=== PATIENT | male | born 1990 | race Caucasian/White ===

== ENCOUNTER 2018-09-25 19:38 | Inpatient (IN) | payer BC, MEDICAID ==
[~2018-09-25] VITALS: Ht 175.3 cm; Wt 79.7 kg
[~2018-09-25 19:38] MED LIST: /ACETCOD2T PO; AMOX500T PO; CELE10TA PO; INVE156I IM; OSEL75CA PO; PROAAER IN; RISP1TAB3 PO; RISP4TAB33 PO; TRAZ50TA2 PO; VENTAER IN; VITA-112 PO; ZYPR10TA PO; ZYPR20TA PO; ZYPR5TAB2 PO
[2018-09-25 20:48] LABS: HEMATOCRIT 49.2 % (42.0-52.0); HEMOGLOBIN 16.8 g/dl (13.5-17.5); MEAN CORPUSCULAR HEMOGLOBIN 29.8 pg (27.0-33.0); MEAN CORPUSCULAR HGB CONC 34.1 g/dl (32.0-36.5); MEAN CORPUSCULAR VOLUME 87.4 fl (80.0-96.0); PLATELET COUNT, AUTOMATED 247 10^3/uL (150-450); RED BLOOD COUNT 5.63 10^6/uL (4.30-6.10); WHITE BLOOD COUNT 12.1 10^3/uL (4.0-10.0)
[2018-09-25 20:57] LABS: AMPHETAMINES LEVEL URINE NEGATIVE (NEGATIVE); BARBITURATES URINE NEGATIVE (NEGATIVE); BENZODIAZEPINES URINE NEGATIVE (NEGATIVE); CANNABINOIDS URINE NEGATIVE (NEGATIVE); COCAINE METABOLITE URINE NEGATIVE (NEGATIVE); METHADONE URINE NEGATIVE (NEGATIVE); OPIATES URINE NEGATIVE (NEGATIVE); PHENCYCLIDINE URINE NEGATIVE (NEGATIVE)
[2018-09-25 21:18] LABS: ACETAMINOPHEN LEVEL < 2.0 UG/ML (10.0-30.0); ALBUMIN 4.4 GM/DL (3.2-5.2); ALT/SGPT 48 U/L (12-78); BILIRUBIN,DIRECT 0.2 MG/DL (0.0-0.2); BILIRUBIN,TOTAL 0.6 MG/DL (0.2-1.0); BLOOD UREA NITROGEN 12 MG/DL (7-18); CARBON DIOXIDE LEVEL 28 MEQ/L (21-32); CHLORIDE LEVEL 101 MEQ/L (98-107); ETHYL ALCOHOL (ETHANOL) < 0.003 % (0.000-0.010); GLOMERULAR FILTRATION RATE > 60.0 (>60); GLUCOSE, FASTING 103 MG/DL (70-100); POTASSIUM SERUM 3.8 MEQ/L (3.5-5.1); SALICYLATE LEVEL < 1.7 MG/DL (5.0-30.0); SODIUM LEVEL 136 MEQ/L (136-145); TOTAL PROTEIN 7.8 GM/DL (6.4-8.2)
[2018-09-25] MEDS ORDERED: ACETAMINOPHEN TAB 650MG DOSE (2X325MG) PO PRN (21:45)
[2018-09-25] MEDS ORDERED: MOM 30ML SUSPENSION UDC PO PRN (21:45)
[2018-09-25] MEDS ORDERED: traZODone 50 MG TAB PO PRN (21:45)
[2018-09-25] MEDS ORDERED: PROAAER10 INH (22:24)
[2018-09-25] MEDS ORDERED: LORA10TA3 PO (22:24)
[2018-09-25] MEDS ORDERED: ARTI99.0 OU (22:24)
[2018-09-25] MEDS ORDERED: METO1TAB32 PO (22:24)
[2018-09-25 23:38] VITALS: BP 145/72
[2018-09-26 06:32] VITALS: BP 116/78
[2018-09-26] MEDS: METOPROLOL SUCC *XL* 25MG TAB (TopROL *XL*) PO SCH ×2 (09:00→11:42)
[2018-09-26] MEDS: PALIPERIDONE 3 MG ER TAB (INVEGA) PO SCH ×2 (09:33→21:24)
--- NOTE | 2018-09-26 09:36 | HPEPDOC ---
[facility] Medical History & Physical History and Physical PCP: Christin VELEZ ATTENDING: Dr. Winnie Barnes HPI: 27 yo M admitted to [facility] for unspecified psychotic disorder, being medically examined today. The patient reports no verbalized medical complaints today. He has a difficult time providing history. The patient is able to provide very little history pedro wang repeatedly states "it's my brain", but is unable to elaborate further. The patient states he takes metoprolol for his blood pressure. Denies any fevers, chills, weakness, fatigue, IZQUIERDO, CP, SOB, cough, palpitations, abdominal pain, N/V/D or changes in bowel or bladder habits. PMHx: History of psychosis Schizophrenia History of SI Asthma Hypertension Allergic rhinitis PSHX: Denies SOCHX: Resides in: [facility] Marital Status: Kids: 1 Employment: Unemployed Tobacco use: Denies ETOH: Denies Illicit Drugs: History of marijuana, states none in the past 6 years. IV Drug Use: Denies Tattoos done unprofessionally: 2 FAMHX: Mother: Alive, well Father: Alive, well Siblings: Alive, well Children: Alive, well Unexpected deaths due to medical reasons: None. ROS: As noted in HPI, otherwise 11pt ROS of systems reviewed and unremarkable. PE: GEN: 27 yo M, appears stated age. Well-nourished, well developed. No acute distress. Alert and oriented x 3. Avoids eye contact, short responses, flat affect. HEENT: Normocephalic, atraumatic. Pupils are equal, round, and reactive to light. Extraocular movements are intact. No nystagmus appreciated. Sclera are no nicteric. Conjunctiva without injection. Nose midline. Nasal turbinates without bogginess. EACs both patent BL. TMs both visualized and anaya with good cone of light, no bulging or erythema. No facial asymmetry. Moist mucous membranes. Dentition fair. Pharynx pink and moist, no cobblestoning. Neck supple, trachea midline. No lymphadenopathy or thyromegaly appreciated. CHEST: Regular rate and rhythm, +S1, +S2 LUNGS: Clear to auscultation bilaterally. No wheezes, rales, or rhonchi. Breathing appears symmetric and easy. Patient is speaking in full sentences. No accessory muscle use. ABD: Round, soft, non-tender, non-distended. +Bowel sounds throughout. No rebound or guarding. No costovertebral angle tenderness. EXT: Pulses 2+ bilaterally dorsalis pedis and radial. No lower extremity edema appreciated. SKIN: Kamaili, dry, warm. Capillary refill <2sec. No rashes. NEURO: Alert and oriented x 3. Cranial nerves III-XII are intact. No focal deficits appreciated. EKG: Pending A&P: 27 yo M admitted to [facility] for unspecified psychotic disorder 1. Psych. Plan per Psychiatry. Obtain baseline EKG to assure the safety of psychiatric medications as they can prolong the QT interval. 2. Nicotine dependence. Patch available. 3. Asthma. Continue albuterol HFA 2 puffs every 4 hours as needed. 4. Follow up with PCP on discharge. 5. Leukocytosis. Patient is afebrile. Asymptomatic. Check UA with reflex culture. Recheck CBC in a.m. 6. Allergic rhinitis. Continue Claritin 10 mg daily. 7. Hypertension. Continue Toprol-XL 25 mg by mouth daily with hold parameters. 8. History of tattoos done unprofessionally. Patient declines HIV and hepatitis screening at this time. 9. Staff member Vasile present throughout exam. Vital Signs Vital Signs Date Time Temp Pulse Resp B/P (MAP) Pulse Ox O2 Delivery O2 Flow Rate FiO2 09/26/18 06:32 98.4 68 16 116/78 (91) 09/25/18 22:29 97 09/25/18 19:38 Room Air Laboratory Data Labs 24H Laboratory Tests 2 09/25/18 20:01: Urine Amphetamines Screen NEGATIVE, Urine Benzodiazepines Screen NEGATIVE, Urine Opiates Screen NEGATIVE, Urine Methadone Screen NEGATIVE, Urine Barbiturates Screen NEGATIVE, Urine Phencyclidine Screen NEGATIVE, Urine Cocaine Metabolite Screen NEGATIVE, Urine Cannabinoids Screen NEGATIVE 09/25/18 20:36: Nucleated Red Blood Cells % (auto) 0.0, Anion Gap 7L, Glomerular Filtration Rate > 60.0, Calcium Level 9.0, Aspartate Amino Transf (AST/SGOT) 13, Alanine Aminotransferase (ALT/SGPT) 48, Alkaline Phosphatase 62, Total Bilirubin 0.6, Direct Bilirubin 0.2, Total Protein 7.8, Albumin 4.4, Albumin/Globulin Ratio 1.29, Thyroid Stimulating Hormone (TSH) 1.230, Salicylates Level < 1.7L, Acetaminophen Level < 2.0L, Ethyl Alcohol Level < 0.003 CBC/BMP Laboratory Tests 09/25/18 20:36 Red Blood Count 5.63, Mean Corpuscular Volume 87.4, Mean Corpuscular Hemoglobin 29.8, Mean Corpuscular Hemoglobin Concent 34.1, Red Cell Distribution Width 12.1 Home Medications Scheduled Loratadine (Loratadine) 10 Mg Tab, 10 MG PO DAILY Metoprolol Succinate (Metoprolol Succinate ER) 25 Mg Tab, 25 MG PO DAILY Scheduled PRN Albuterol Sulfate (Proair Hfa) 108 Mcg/Act Aer, 2 PUFF INH Q4H PRN for SHORTNESS OF BREATH Artificial Tears (Artificial Tears) 1.4 % Ilana, 1 DROP OU QID PRN for DRY EYES Allergies Coded Allergies: No Known Drug Allergy (Verified Allergy, 06/22/13) POLLEN (Verified Allergy, 11/01/12) Paula Schafer Sep 26, 2018 09:36
[2018-09-26] MEDS ORDERED: POLYVINYL ALCOHOL OPHTH SOLN 15 ML(LIQUITEARS) OU PRN (09:45)
[2018-09-26] MEDS: LORATADINE 10 MG TAB PO SCH (10:20)
--- NOTE | 2018-09-26 12:06 | MHHPEPDOC ---
General Date Of Admission: Sep 25, 2018 Legal Status: 9.39 Chief Complaint "I feel like I'm loosing my mind." History of Present Illness HISTORY OF THE PRESENT ILLNESS: Patient is a 27 -year-old , male, with a history of schizophrenia who was admitted after presenting to ED with his stating "I feel like I'm loosing my mind. I just feel like I'm dying inside. I just need to be put down... I was put down here before." Pt's told ED staff, pt has been noncompliance with [facility] follow-up and invega for the past 6 months. stated that pt has become increasingly paranoid for the past few days and told her "people are tracking me." Pt seen today and he is a very poor historian, appears to be paranoid and responding to internal stimuli, pacing thru out interview unwilling to sit down when offered. Pt states he's here b/c "I'm loosing my mind and I need to be put down." Pt unable to proceed with rest of interview reliably due to on going internal stimuli, paranoia, restlessness, and poor attention. Rest of history gather from chart review as pt is a very poor historian. Psychiatric Review of Systems Depression (2 or more weeks): depressed mood, suicidal thoughts Romina (4 or more days of): denies Psychosis: auditory hallucination, delusions, paranoia, disorganization PTSD: denies Anxiety: situational anxiety, stressor related anxiety Anxiety/ 6 months or more of: restlessness, keyed up, difficulty concentrating Past Psychiatric History Previous Psychiatric Diagnosis:Schizophrenia Previous Psychiatric Admissions: last admission [facility] 10/2013 (4x total [facility]), Inpatient psychiatric hospitalization at [facility] from 12/27/11 to 01/04/12. Suicide Attempts: none known Psychiatric Follow-up: noncompliant follow-up [facility] 6 months Psychiatric medications: noncompliant invega 6 months Past Medical History Medical Problems none known Head Injury: No Seizures: No Hospitalizations: Yes Surgeries: No Family Medical/Psychiatric HX Medical Problems noncontributory Psychiatric Disorders: No Addiction: No Suicide Attemps/Completions: No Addiction History nicotine (vapor) Social History Childhood: grew up [facility] Abuse/Trauma:none known Current Living Situation: lives with and son Education: GED per records Employment: unknown Social Support: Legal: none known Marital: , 1 teenage son known from previous records Mental Status Examination General Appearance: well groomed, appears stated age, hospital scubs/clothing Build: average Demeanor: mistrustful, withdrawn, preoccupied, guarded, very figety Eye Contact: poor Activity: anxious Behavior: uncooperative, restless, withdrawn, other (pacing) Speech: clear, non-spontaneous, impoverished Mood: anxious Mood "I'm loosing my mind" Affect: constricted, flat, inappropriate, anxious, disorganized Thought Process: concrete, loose, associative Thought Content (Delusions): somatic, nihilistic, paranoia, delusions, other ((Cotard delusion?)) Thought Content (Other): preoccupied, obsessional, guarded, ideas of reference, internal-stimuli, appears paranoid, unable to elaborate Thought Content (Aggressive): none reported Perception (Hallucinations): auditory Perception (Other): none reported Cognition (Impairment of): attention/concentration, ability to abstract Cognition(Intelligence Est.): average Oriented: Awake, Alert, Oriented times three Insight: poor Judgment: Poor Psychosis: Associations, Abstract Thinking, Psychotic Perceptions Diagnoses Paranoid Schizophrenia R/o Cotard delusions Assessment Pt with a history of schizophrenia and noncompliance 6 months currently in decompensated psychotic state. He is paranoid, responding internal stimuli, and delusional. Will restart invega as was beneficial in the past. Initial Treatment Plan 1. Patient was admitted on a 9.39 status. 2. Complete history was obtained. 3. With patients permission, family will be contacted and database will be expanded. 4. Patients medication regimen will be reviewed and changed accordingly. 5. Patient will be provided with protected environment. 6. Patient will be treated with individual, group, and milieu therapies. 7. Patient will receive supportive psych-education. 8. Discharge planning will commence immediately. 9. Outpatient follow-up treatment will be strongly recommended. 10. The initial treatment plan will focus initially on: * Depression. * Risk for suicide. * Substance abuse. 11. invega 3mg bid ESTIMATED LENGTH OF STAY: 7-9 DAYS. TIME SPENT COUNSELING AND COORDINATING INITIAL CARE: 60 minutes. Vital Signs Vital Signs Date Time Temp Pulse Resp B/P (MAP) Pulse Ox O2 Delivery O2 Flow Rate FiO2 09/26/18 09:00 61 130/77 09/26/18 06:32 98.4 16 09/25/18 22:29 97 09/25/18 19:38 Room Air Laboratory Data 24H Labs Laboratory Tests 2 09/25/18 20:01: Urine Amphetamines Screen NEGATIVE, Urine Benzodiazepines Screen NEGATIVE, Urine Opiates Screen NEGATIVE, Urine Methadone Screen NEGATIVE, Urine Barbiturates Screen NEGATIVE, Urine Phencyclidine Screen NEGATIVE, Urine Cocaine Metabolite Screen NEGATIVE, Urine Cannabinoids Screen NEGATIVE 09/25/18 20:36: Nucleated Red Blood Cells % (auto) 0.0, Anion Gap 7L, Glomerular Filtration Rate > 60.0, Calcium Level 9.0, Aspartate Amino Transf (AST/SGOT) 13, Alanine Aminotransferase (ALT/SGPT) 48, Alkaline Phosphatase 62, Total Bilirubin 0.6, Direct Bilirubin 0.2, Total Protein 7.8, Albumin 4.4, Albumin/Globulin Ratio 1.29, Thyroid Stimulating Hormone (TSH) 1.230, Salicylates Level < 1.7L, Acetaminophen Level < 2.0L, Ethyl Alcohol Level < 0.003 CBC/BMP Laboratory Tests 09/25/18 20:36 Red Blood Count 5.63, Mean Corpuscular Volume 87.4, Mean Corpuscular Hemoglobin 29.8, Mean Corpuscular Hemoglobin Concent 34.1, Red Cell Distribution Width 12.1 Medications Scheduled Loratadine (Loratadine) 10 Mg Tab, 10 MG PO DAILY, (Reported) Metoprolol Succinate (Metoprolol Succinate ER) 25 Mg Tab, 25 MG PO DAILY, (Reported) Scheduled PRN Albuterol Sulfate (Proair Hfa) 108 Mcg/Act Aer, 2 PUFF INH Q4H PRN for SHORTNESS OF BREATH, (Reported) Artificial Tears (Artificial Tears) 1.4 % Ilana, 1 DROP OU QID PRN for DRY EYES, (Reported) Allergies Coded Allergies: No Known Drug Allergy (Verified Allergy, 06/22/13) POLLEN (Verified Allergy, 11/01/12) JENNY ULLOA DO Sep 26, 2018 11:34 am
[2018-09-26] MEDS ORDERED: HALOPERIDOL 5 MG TAB PO PRN (12:15)
[2018-09-26 18:00] VITALS: BP 134/89
[2018-09-27 06:41] VITALS: BP 126/60
[2018-09-27] MEDS: PALIPERIDONE 3 MG ER TAB (INVEGA) PO SCH ×2 (09:38→20:31)
[2018-09-27] MEDS: LORazepam 2 MG TAB PO PRN ×2 (09:38→20:31)
[2018-09-27] MEDS: LORATADINE 10 MG TAB PO SCH (09:39)
[2018-09-27] MEDS: METOPROLOL SUCC *XL* 25MG TAB (TopROL *XL*) PO SCH (09:40)
--- NOTE | 2018-09-27 10:12 | MHIPNPDOC ---
[facility] Progress Note Progress Note DATE OF SERVICE: 09/27/18 HISTORY: Patient is a 27 -year-old , male, with a history of schizophrenia who was admitted after presenting to ED with his stating "I feel like I'm loosing my mind. I just feel like I'm dying inside. I just need to be put down... I was put down here before." Pt's told ED staff, pt has been noncompliance with [facility] follow-up and invega for the past 6 months. stated that pt has become increasingly paranoid for the past few days and told her "people are tracking me." Pt seen today and he is a very poor historian, appears to be paranoid and responding to internal stimuli, pacing thru out interview unwilling to sit down when offered. Pt states he's here b/c "I'm loosing my mind and I need to be put down." Pt unable to proceed with rest of interview reliably due to on going internal stimuli, paranoia, restlessness, and poor attention. Rest of history gather from chart review as pt is a very poor historian. VITAL SIGNS: See below. NEW TEST RESULTS: See below. CURRENT MEDICATIONS: See below. MENTAL STATUS EXAMINATION: General Appearance: well groomed, appears stated age, hospital scubs/clothing Build: average Demeanor: mistrustful, withdrawn, preoccupied, guarded, very figety Eye Contact: poor Activity: anxious Behavior: uncooperative, restless, withdrawn, other (pacing) Speech: clear, non-spontaneous, impoverished Mood: anxious Mood "I need a life" Affect: constricted, flat, inappropriate, anxious, disorganized Thought Process: concrete, loose, associative Thought Content (Delusions): somatic, nihilistic, paranoia, delusions, other ((Cotard delusion?)) Thought Content (Other): preoccupied, obsessional, guarded, ideas of reference, internal-stimuli, appears paranoid, unable to elaborate Thought Content (Aggressive): none reported Perception (Hallucinations): auditory Perception (Other): none reported Cognition (Impairment of): attention/concentration, ability to abstract Cognition(Intelligence Est.): average Oriented: Awake, Alert, Oriented times three Insight: poor Judgment: Poor Psychosis: Associations, Abstract Thinking, Psychotic Perceptions DIAGNOSES: Paranoid Schizophrenia R/o Cotard delusions ASSESSMENT:Pt seen and remains bizarre, mistrustful, and paranoid. Appears to be responding to internal stimuli with limited ability to participate in interview only stating "I need a life." Pt continues to pace halls. Isolative to self. Appears psychotic. Complaint with invega and will monitor for tolerance and improvement in status as titrate up to invega sustenna administration. MANAGEMENT PLAN: continue current plan. Plan for invega sustenna pending oral invega tolerance and improved status. Medications: invega 3mg bid TIME SPENT: 30 minutes. Vital Signs Vital Signs Date Time Temp Pulse Resp B/P (MAP) Pulse Ox O2 Delivery O2 Flow Rate FiO2 09/27/18 09:40 64 128/72 09/27/18 06:41 97.8 16 09/25/18 22:29 97 09/25/18 19:38 Room Air Laboratory Data 24H Labs Laboratory Tests 2 09/26/18 14:45: Urine Color STRAW, Urine Appearance CLEAR, Urine pH 7.0, Urine Specific Baker 1.002, Urine Protein NEGATIVE, Urine Glucose (UA) NEGATIVE, Urine Ketones NEGATI VE, Urine Blood NEGATIVE, Urine Nitrite NEGATIVE, Urine Bilirubin NEGATIVE, Urine Urobilinogen 0.2, Urine Leukocyte Esterase NEGATIVE, Urine WBC (Auto) 0, Urine RBC (Auto) 1, Urine Hyaline Casts (Auto) 0, Urine Bacteria (Auto) NEGATIVE, Urine Squamous Epithelial Cells 0, Urine Sperm (Auto) Current Medications Current Medications Acetaminophen (Tylenol Tab) 650 mg Q6HP PRN PO HEADACHE or DISCOMFORT; Start 09/25/18 at 21:45 Al Hydrox/Mg Hydrox/Simethicone (Mylanta) 30 ml Q4HP PRN PO HEARTBURN/INDIGESTION; Start 09/25/18 at 21:45 Albuterol Sulfate (Proventil, Ventolin Hfa) 2 puff Q4H PRN INH SHORTNESS OF BREATH; Start 09/26/18 at 09:45 Artificial Tears (Akwa Tears) 1 drop QID PRN OU DRY EYES; Start 09/26/18 at 09:45 Haloperidol (Haldol) 5 mg Q6HP PRN PO AGITATION; Start 09/26/18 at 12:15 Home Med (Med Rec Complete!) ASDIRECTED XX ; Start 09/25/18 at 22:30; Stop 09/25/18 at 22:30; Status DC Loratadine (Claritin) 10 mg DAILY PO Last administered on 09/27/18at 09:39; Star t 09/26/18 at 09:00 Lorazepam (Ativan) 2 mg Q6HP PRN PO ANXIETY/AGITATION Last administered on 09/27/18 09:38; Start 09/26/18 at 12:15 Magnesium Hydroxide (Milk Of Magnesia) 30 ml DAILYPRN PRN PO CONSTIPATION; Start 09/25/18 at 21:45 Metoprolol Succinate (TopROL XL) 25 mg DAILY PO Last administered on 09/27/18 09:40; Start 09/26/18 at 09:00 Paliperidone (Invega) 3 mg BID PO Last administered on 09/27/18 09:38; Start 09/26/18 at 09:00 Trazodone HCl (Desyrel) 50 mg QHSP PRN PO INSOMNIA; Start 09/25/18 at 21:45 Allergies Coded Allergies: No Known Drug Allergy (Verified Allergy, 06/22/13) POLLEN (Verified Allergy, 11/01/12) JENNY ULLOA DO Sep 27, 2018 10:12 am
[2018-09-27] MEDS: NICOTINE 21MG/24HR 1 EA TRANSDERMAL TD SCH (12:06)
[2018-09-27] MEDS: MAALOX 30 ML SUSP *UDC PO PRN (16:55)
[2018-09-27 18:00] VITALS: BP 122/68
[2018-09-27] MEDS: traZODone 50 MG TAB PO SCH (21:00)
--- NOTE | 2018-09-27 22:22 | ECGEPIP ---
Stationary ECG Study [facility] Test Date: 2018-09-26 Pat Name: ESTRELLITA SIERRA Department: Room: [place] [address] Gender: M Contact Printer Dry Film: SAMIA : 1990 Requested By: Paula Schafer Order Number: [id number] Reading MD: Ck Chisholm Measurements Intervals Chana Rate: 72 P: 53 LA: 131 QRS: 70 QRSD: 80 T: 52 QT: 369 QTc: 404 Interpretive Statements SINUS RHYTHM Within normal limits. Baseline wander. No significant change compared with 10/24/2013. Electronically Signed On 09-27-2018 22:22:30 EST by Ck Chisholm
[2018-09-28 07:23] VITALS: BP 108/57
[2018-09-28] MEDS: LORATADINE 10 MG TAB PO SCH (09:00)
[2018-09-28] MEDS: PALIPERIDONE 3 MG ER TAB (INVEGA) PO SCH (09:00)
[2018-09-28] MEDS: METOPROLOL SUCC *XL* 25MG TAB (TopROL *XL*) PO SCH (09:01)
[2018-09-28] MEDS: NICOTINE 21MG/24HR 1 EA TRANSDERMAL TD SCH (09:02)
[2018-09-28] MEDS: LORazepam 2 MG TAB PO PRN ×2 (09:55→20:37)
--- NOTE | 2018-09-28 09:56 | MHIPNPDOC ---
[facility] Progress Note Progress Note DATE OF SERVICE: 09/28/18 HISTORY: Patient is a 27 -year-old , male, with a history of schizophrenia who was admitted after presenting to ED with his stating "I feel like I'm loosing my mind. I just feel like I'm dying inside. I just need to be put down... I was put down here before." Pt's told ED staff, pt has been noncompliance with [facility] follow-up and invega for the past 6 months. stated that pt has become increasingly paranoid for the past few days and told her "people are tracking me." Pt seen today and he is a very poor historian, appears to be paranoid and responding to internal stimuli, pacing thru out interview unwilling to sit down when offered. Pt states he's here b/c "I'm loosing my mind and I need to be put down." Pt unable to proceed with rest of interview reliably due to on going internal stimuli, paranoia, restlessness, and poor attention. Rest of history gather from chart review as pt is a very poor historian. VITAL SIGNS: See below. NEW TEST RESULTS: See below. CURRENT MEDICATIONS: See below. MENTAL STATUS EXAMINATION: General Appearance: well groomed, appears stated age, hospital scrubs/clothing Build: average Demeanor: less mistrustful, withdrawn, preoccupied, guarded Eye Contact: poor Activity: less anxious Behavior: more cooperative, restless, withdrawn, other (pacing) Speech: clear, non-spontaneous, impoverished Mood: less anxious Mood "ok" Affect: constricted, flat, less anxious and disorganized Thought Process: concrete, less loose and associative Thought Content (Delusions): less somatic, nihilistic, paranoia, delusions, other ((Cotard delusion?)) Thought Content (Other): less preoccupied, obsessional, guarded, ideas of reference, internal-stimuli, appears paranoid Thought Content (Aggressive): none reported Perception (Hallucinations): less auditory Perception (Other): none reported Cognition (Impairment of): attention/concentration, ability to abstract Cognition(Intelligence Est.): average Oriented: Awake, Alert, Oriented times three Insight: poor Judgment: Poor Psychosis: Associations, Abstract Thinking, Psychotic Perceptions DIAGNOSES: Paranoid Schizophrenia R/o Cotard delusions ASSESSMENT:Pt seen and states his head (thoughts) are better. Improving bizarre, mistrustful, and paranoid behavior. Appears to be responding to internal stimuli intermittantly thru out day but improving with treatment. Stat es he's tolerating invega, is beneficial, and agreeable to increase. Less pacing halls and isolative to self. Appears less psychotic. Complaint with invega and will monitor for tolerance and improvement in status as titrate up to invega sustenna administration. MANAGEMENT PLAN: continue current plan. Plan for invega sustenna pending oral invega tolerance and improved status. Medications: invega 6mg bid TIME SPENT: 30 minutes. Vital Signs Vital Signs Date Time Temp Pulse Resp B/P (MAP) Pulse Ox O2 Delivery O2 Flow Rate FiO2 09/28/18 09:01 100 133/89 09/28/18 07:23 97.7 16 09/25/18 22:29 97 09/25/18 19:38 Room Air Current Medications Current Medications Acetaminophen (Tylenol Tab) 650 mg Q6HP PRN PO HEADACHE or DISCOMFORT; Start 09/25/18 at 21:45 Al Hydrox/Mg Hydrox/Simethicone (Mylanta) 30 ml Q4HP PRN PO HEARTBURN/INDIGESTION Last administered on 09/27/18at 16:55; Start 09/25/18 at 21:45 Albuterol Sulfate (Proventil, Ventolin Hfa) 2 puff Q4H PRN INH SHORTNESS OF BREATH; Start 09/26/18 at 09:45 Artificial Tears (Akwa Tears) 1 drop QID PRN OU DRY EYES; Start 09/26/18 at 09:45 Haloperidol (Haldol) 5 mg Q6HP PRN PO AGITATION; Start 09/26/18 at 12:15 Home Med (Med Rec Complete!) ASDIRECTED XX ; Start 09/25/18 at 22:30; Stop 09/25/18 at 22:30; Status DC Loratadine (Claritin) 10 mg DAILY PO Last administered on 09/28/18at 09:00; Start 09/26/18 at 09:00 Lorazepam (Ativan) 2 mg Q6HP PRN PO ANXIETY/AGITATION Last administered on 09/27/18at 20:31; Start 09/26/18 at 12:15 Magnesium Hydroxide (Milk Of Magnesia) 30 ml DAILYPRN PRN PO CONSTIPATION; Start 09/25/18 at 21:45 Metoprolol Succinate (TopROL XL) 25 mg DAILY PO Last administered on 09/28/18at 09:01; Start 09/26/18 at 09:00 Nicotine (Nicoderm Cq 21mg) 1 patch DAILY TD Last administered on 09/28/18at 09:02; Start 09/27/18 at 09:00 Paliperidone (Invega) 3 mg BID PO Last administered on 09/28/18at 09:00; Start 09/26/18 at 09:00 Trazodone HCl (Desyrel) 50 mg QHS PO ; Start 09/27/18 at 21:00 Trazodone HCl (Desyrel) 50 mg QHSP PRN PO INSOMNIA; Start 09/25/18 at 21:45; St op 09/27/18 at 11:43; Status DC Allergies Coded Allergies: No Known Drug Allergy (Verified Allergy, 06/22/13) POLLEN (Verified Allergy, 11/01/12) JENNY ULLOA DO Sep 28, 2018 9:56 am
[2018-09-28 18:00] VITALS: BP 143/74
[2018-09-28] MEDS: PALIPERIDONE 6 MG ER TAB (INVEGA) PO SCH (20:36)
[2018-09-28] MEDS: traZODone 50 MG TAB PO SCH (21:00)
[2018-09-29 06:00] VITALS: BP 125/74
[2018-09-29] MEDS: PALIPERIDONE 6 MG ER TAB (INVEGA) PO SCH ×2 (09:16→20:32)
[2018-09-29] MEDS: METOPROLOL SUCC *XL* 25MG TAB (TopROL *XL*) PO SCH (09:16)
[2018-09-29] MEDS: LORATADINE 10 MG TAB PO SCH (09:16)
[2018-09-29] MEDS: NICOTINE 21MG/24HR 1 EA TRANSDERMAL TD SCH (09:17)
[2018-09-29] MEDS: LORazepam 2 MG TAB PO PRN ×3 (09:19→22:25)
--- NOTE | 2018-09-29 10:00 | MHIPNPDOC ---
[facility] Progress Note Progress Note DATE OF SERVICE: 09/29/18 HISTORY: Patient is a 27 -year-old , male, with a history of schizophrenia who was admitted after presenting to ED with his stating "I feel like I'm loosing my mind. I just feel like I'm dying inside. I just need to be put down... I was put down here before." Pt's told ED staff, pt has been noncompliance with [facility] follow-up and invega for the past 6 months. stated that pt has become increasingly paranoid for the past few days and told her "people are tracking me." Pt seen today and he is a very poor historian, appears to be paranoid and responding to internal stimuli, pacing thru out interview unwilling to sit down when offered. Pt states he's here b/c "I'm loosing my mind and I need to be put down." Pt unable to proceed with rest of interview reliably due to on going internal stimuli, paranoia, restlessness, and poor attention. Rest of history gather from chart review as pt is a very poor historian. VITAL SIGNS: See below. NEW TEST RESULTS: See below. CURRENT MEDICATIONS: See below. MENTAL STATUS EXAMINATION: General Appearance: well groomed, appears stated age, own clothing Build: average Demeanor: cooperative Eye Contact: poor Activity: less anxious Behavior: more cooperative, less withdrawn Speech: clear, spontaneous Mood: less anxious Mood "good" Affect: less constricted and flat, less anxious Thought Process: concrete, linear/logical Thought Content (Delusions): much less somatic, nihilistic, paranoia, delusions, other ((Cotard delusion?)) Thought Content (Other): much less preoccupied, obsessional, guarded, ideas of reference, no longer appears to have internal-stimuli, improved paranoia Thought Content (Aggressive): none reported Perception (Hallucinations): less auditory Perception (Other): none reported Cognition (Impairment of): attention/concentration, ability to abstract Cognition(Intelligence Est.): average Oriented: Awake, Alert, Oriented times three Insight: fair Judgment: fair Psychosis: Improved Associations, Abstract Thinking, Psychotic Perceptions DIAGNOSES: Paranoid Schizophrenia R/o Cotard delusions ASSESSMENT:Pt seen and states he's doing good. Denies AH. Able to concentrate better and do word search game is his free time. Improving bizarre, mistrustful, and paranoid behavior. Does not appear to be responding to internal stimuli any longer. States he's tolerating invega, is beneficial, and agreeable to invega sustenna loading dose today. Less pacing halls and isolative to self. Appears less psychotic. Denies SI/HI. Feels safe here. MANAGEMENT PLAN: continue current plan. Plan for invega sustenna 234mg loading dose today Medications: invega 6mg bid invega sustenna 234mg today TIME SPENT: 30 minutes. Vital Signs Vital Signs Date Time Temp Pulse Resp B/P (MAP) Pulse Ox O2 Delivery O2 Flow Rate FiO2 09/29/18 09:16 89 122/72 09/29/18 06:00 97.9 16 Room Air 09/25/18 22:29 97 Current Medications Current Medications Acetaminophen (Tylenol Tab) 650 mg Q6HP PRN PO HEADACHE or DISCOMFORT; Start 09/25/18 at 21:45 Al Hydrox/Mg Hydrox/Simethicone (Mylanta) 30 ml Q4HP PRN PO HEARTBURN/INDIGESTION Last administered on 09/27/18at 16:55; Start 09/25/18 at 21:45 Albuterol Sulfate (Proventil, Ventolin Hfa) 2 puff Q4H PRN INH SHORTNESS OF BREATH; Start 09/26/18 at 09:45 Artificial Tears (Akwa Tears) 1 drop QID PRN OU DRY EYES; Start 09/26/18 at 09:45 Haloperidol (Haldol) 5 mg Q6HP PRN PO AGITATION; Start 09/26/18 at 12:15 Home Med (Med Rec Complete!) ASDIRECTED XX ; Start 09/25/18 at 22:30; Stop 09/25/18 at 22:30; Status DC Loratadine (Claritin) 10 mg DAILY PO Last administered on 09/29/18at 09:16; Start 09/26/18 at 09:00 Lorazepam (Ativan) 2 mg Q6HP PRN PO ANXIETY/AGITATION Last administered on 09/29/18at 09:19; Start 09/26/18 at 12:15 Magnesium Hydroxide (Milk Of Magnesia) 30 ml DAILYPRN PRN PO CONSTIPATION; Start 09/25/18 at 21:45 Metoprolol Succinate (TopROL XL) 25 mg DAILY PO Last administered on 09/29/18at 09:16; Start 09/26/18 at 09:00 Nicotine (Nicoderm Cq 21mg) 1 patch DAILY TD Last administered on 09/29/18at 09:17; Start 09/27/18 at 09:00 Paliperidone (Invega) 3 mg BID PO Last administered on 09/28/18at 09:00; Start 09/26/18 at 09:00; Stop 09/28/18 at 09:57; Status DC Paliperidone (Invega) 6 mg BID PO Last administered on 09/29/18at 09:16; Start 09/28/18 at 21:00 Trazodone HCl (Desyrel) 50 mg QHS PO ; Start 09/27/18 at 21:00 Trazodone HCl (Desyrel) 50 mg QHSP PRN PO INSOMNIA; Start 09/25/18 at 21:45; Stop 09/27/18 at 11:43; Status DC Allergies Coded Allergies: No Known Drug Allergy (Verified Allergy, 06/22/13) POLLEN (Verified Allergy, 11/01/12) JENNY ULLOA DO Sep 29, 2018 10:00 am
[2018-09-29] MEDS ORDERED: PALIPERIDONE PALMITATE 234 MG/1.5 ML INJ (INVEGA SUSTENNA)(J2426) IM ONE (11:00)
[2018-09-29 18:00] VITALS: BP 132/85
[2018-09-29] MEDS: traZODone 50 MG TAB PO SCH (21:00)
[2018-09-29] MEDS: ALBUTEROL 90 MCG/ACT 8GM HFA INHALER INH PRN (21:44)
[2018-09-30 06:00] VITALS: BP 91/52
[2018-09-30] MEDS: NICOTINE 21MG/24HR 1 EA TRANSDERMAL TD SCH (09:08)
[2018-09-30] MEDS: PALIPERIDONE 6 MG ER TAB (INVEGA) PO SCH ×2 (09:08→20:38)
[2018-09-30] MEDS: LORATADINE 10 MG TAB PO SCH (09:08)
[2018-09-30] MEDS: METOPROLOL SUCC *XL* 25MG TAB (TopROL *XL*) PO SCH (09:16)
[2018-09-30] MEDS: ALBUTEROL 90 MCG/ACT 8GM HFA INHALER INH PRN ×3 (10:28→23:32)
[2018-09-30] MEDS: LORazepam 2 MG TAB PO PRN ×2 (11:40→20:38)
[2018-09-30 18:00] VITALS: BP 128/70
[2018-09-30] MEDS: traZODone 50 MG TAB PO SCH (23:24)
[2018-10-01 06:00] VITALS: BP 143/78
[2018-10-01] MEDS: PALIPERIDONE 6 MG ER TAB (INVEGA) PO SCH ×2 (09:34→20:36)
[2018-10-01] MEDS: METOPROLOL SUCC *XL* 25MG TAB (TopROL *XL*) PO SCH (09:36)
[2018-10-01] MEDS: LORATADINE 10 MG TAB PO SCH (09:36)
[2018-10-01] MEDS: NICOTINE 21MG/24HR 1 EA TRANSDERMAL TD SCH (09:40)
[2018-10-01] MEDS: LORazepam 2 MG TAB PO PRN ×2 (10:43→17:10)
[2018-10-01 18:00] VITALS: BP 134/74
[2018-10-01] MEDS: ALBUTEROL 90 MCG/ACT 8GM HFA INHALER INH PRN (20:38)
[2018-10-01] MEDS: traZODone 50 MG TAB PO SCH (21:00)
[2018-10-02] MEDS: MAALOX 30 ML SUSP *UDC PO PRN ×2 (00:26→10:09)
[2018-10-02 06:18] VITALS: BP 142/63
[2018-10-02] MEDS: PALIPERIDONE 6 MG ER TAB (INVEGA) PO SCH (08:23)
[2018-10-02] MEDS: METOPROLOL SUCC *XL* 25MG TAB (TopROL *XL*) PO SCH (08:23)
[2018-10-02] MEDS: NICOTINE 21MG/24HR 1 EA TRANSDERMAL TD SCH (08:23)
[2018-10-02] MEDS: LORATADINE 10 MG TAB PO SCH (08:23)
[2018-10-02] MEDS: LORazepam 2 MG TAB PO PRN ×2 (08:50→15:27)
[2018-10-02] MEDS: ALBUTEROL 90 MCG/ACT 8GM HFA INHALER INH PRN (09:25)
--- NOTE | 2018-10-02 10:11 | MHIPNPDOC ---
[facility] Progress Note Progress Note DATE OF SERVICE: 10/02/18 HISTORY: Patient is a 27 -year-old , male, with a history of schizophrenia who was admitted after presenting to ED with his stating "I feel like I'm loosing my mind. I just feel like I'm dying inside. I just need to be put down... I was put down here before." Pt's told ED staff, pt has been noncompliance with [facility] follow-up and invega for the past 6 months. stated that pt has become increasingly paranoid for the past few days and told her "people are tracking me." Pt seen today and he is a very poor historian, appears to be paranoid and responding to internal stimuli, pacing thru out interview unwilling to sit down when offered. Pt states he's here b/c "I'm loosing my mind and I need to be put down." Pt unable to proceed with rest of interview reliably due to on going internal stimuli, paranoia, restlessness, and poor attention. Rest of history gather from chart review as pt is a very poor historian. VITAL SIGNS: See below. NEW TEST RESULTS: See below. CURRENT MEDICATIONS: See below. MENTAL STATUS EXAMINATION: General Appearance: well groomed, appears stated age, own clothing Build: average Demeanor: cooperative Eye Contact: fair Activity: calm Behavior: cooperative, less withdrawn Speech: clear, spontaneous Mood: euthymic, flat Mood "good" Affect: euthymic, flat, slightly constricted to mid range Thought Process: concrete, linear/logical Thought Content (Delusions): denies somatic, nihilistic, paranoia, delusions Thought Content (Other): improved preoccupation, obsessional, paranoia thoughs Thought Content (Aggressive): none reported Perception (Hallucinations): denies Perception (Other): none reported Cognition (Impairment of): improved attention/concentration, ability to abstract Cognition(Intelligence Est.): average Oriented: Awake, Alert, Oriented times three Insight: fair Judgment: fair Psychosis: Improved Associations, Abstract Thinking, Psychotic Perceptions DIAGNOSES: Paranoid Schizophrenia R/o Cotard delusions ASSESSMENT:Pt seen and states he's doing good. Denies AH. States he tolerated invega sustenna loading dose given Tuesday and feels it beneficial. Agreeable to maintenance dose today. Denies bizarre, mistrustful, and paranoid behavior. Does not appear to be responding to internal stimuli any longer. Socializing with peers on the unit and doing therapeutic activities on his own. States he's not really a group person and likes to work out at home as a form of therapy that is beneficial to him. No longer pacing halls and isolative to self. Appears much less psychotic. Denies SI/HI. Feels safe here. MANAGEMENT PLAN: continue current plan. Plan for invega sustenna 156mg maintenance dose today. D/c oral invega as pt doing well on invega sustenna Medications: invega sustenna 156mg today invega sustenna 234mg 09/29/18 TIME SPENT: 30 minutes. Vital Signs Vital Signs Date Time Temp Pulse Resp B/P (MAP) Pulse Ox O2 Delivery O2 Flow Rate FiO2 10/02/18 08:23 58 142/63 10/02/18 06:18 97.5 14 Room Air Current Medications Current Medications Acetaminophen (Tylenol Tab) 650 mg Q6HP PRN PO HEADACHE or DISCOMFORT; Start 09/25/18 at 21:45 Al Hydrox/Mg Hydrox/Simethicone (Mylanta) 30 ml Q4HP PRN PO HEARTBURN/INDIGESTION Last administered on 10/02/18at 00:26; Start 09/25/18 at 21:45 Albuterol Sulfate (Proventil, Ventolin Hfa) 2 puff Q4H PRN INH SHORTNESS OF BREATH Last administered on 10/02/18at 09:25; Start 09/26/18 at 09:45 Artificial Tears (Akwa Tears) 1 drop QID PRN OU DRY EYES; Start 09/26/18 at 09:45 Haloperidol (Haldol) 5 mg Q6HP PRN PO AGITATION; Start 09/26/18 at 12:15 Home Med (Med Rec Complete!) ASDIRECTED XX ; Start 09/25/18 at 22:30; Stop 09/25/18 at 22:30; Status DC Loratadine (Claritin) 10 mg DAILY PO Last administered on 10/02/18at 08:23; Start 09/26/18 at 09:00 Lorazepam (Ativan) 2 mg Q6HP PRN PO ANXIETY/AGITATION Last administered on 10/02/18at 08:50; Start 09/26/18 at 12:15 Magnesium Hydroxide (Milk Of Magnesia) 30 ml DAILYPRN PRN PO CONSTIPATION Last administered on 10/01/18at 20:48; Start 09/25/18 at 21:45 Metoprolol Succinate (TopROL XL) 25 mg DAILY PO Last administered on 10/02/18 08:23; Start 09/26/18 at 09:00 Nicotine (Nicoderm Cq 21mg) 1 patch DAILY TD Last administered on 10/02/18 08:23; Start 09/27/18 at 09:00 Paliperidone (Invega) 3 mg BID PO Last administered on 09/28/18at 09:00; Start 09/26/18 at 09:00; Stop 09/28/18 at 09:57; Status DC Paliperidone (Invega) 6 mg BID PO Last administered on 10/02/18at 08:23; Start 09/28/18 at 21:00 Trazodone HCl (Desyrel) 50 mg QHS PO Last administered on 09/30/18at 23:24; Start 09/27/18 at 21:00 Trazodone HCl (Desyrel) 50 mg QHSP PRN PO INSOMNIA; Start 09/25/18 at 21:45; Stop 09/27/18 at 11:43; Status DC Allergies Coded Allergies: No Known Drug Allergy (Verified Allergy, 06/22/13) POLLEN (Verified Allergy, 11/01/12) JENNY ULLOA DO Oct 02, 2018 10:11 am
[2018-10-02] MEDS ORDERED: PALIPERIDONE PALMITATE 156 MG/1ML INJ(INVEGA SUSTENNA)(J2426) IM ONE (11:00)
[2018-10-02 18:00] VITALS: BP 133/72
[2018-10-02] MEDS: traZODone 50 MG TAB PO SCH (21:00)
[2018-10-03 06:38] VITALS: BP 98/62
[2018-10-03] MEDS: LORATADINE 10 MG TAB PO SCH (08:03)
[2018-10-03] MEDS: NICOTINE 21MG/24HR 1 EA TRANSDERMAL TD SCH (08:03)
[2018-10-03] MEDS: METOPROLOL SUCC *XL* 25MG TAB (TopROL *XL*) PO SCH (08:04)
[2018-10-03] MEDS: LORazepam 2 MG TAB PO PRN ×2 (08:47→16:03)
[2018-10-03] MEDS: ALBUTEROL 90 MCG/ACT 8GM HFA INHALER INH PRN (14:29)
[2018-10-03 18:00] VITALS: BP 138/60
[2018-10-03] MEDS: traZODone 50 MG TAB PO SCH (21:00)
[2018-10-04 06:27] VITALS: BP 104/62
[2018-10-04 08:49] VITALS: BP 122/66
[2018-10-04] MEDS: METOPROLOL SUCC *XL* 25MG TAB (TopROL *XL*) PO SCH (08:49)
[2018-10-04] MEDS: LORATADINE 10 MG TAB PO SCH (08:49)
[2018-10-04] MEDS: NICOTINE 21MG/24HR 1 EA TRANSDERMAL TD SCH (08:50)
--- NOTE | 2018-10-04 08:54 | MHDSPDOC ---
[facility] Discharge Summary Discharge Summary DATE OF ADMISSION: Sep 25, 2018 at 9:36 pm DATE OF DISCHARGE: Oct 04, 2018 DISCHARGE DIAGNOSES: Paranoid Schizophrenia REASON FOR ADMISSION: Patient is a 27 -year-old , male, with a history of schizophrenia who was admitted after presenting to ED with his stating "I feel like I'm loosing my mind. I just feel like I'm dying inside. I just need to be put down... I was put down here before." Pt's told ED staff, pt has been noncompliance with [facility] follow-up and invega for the past 6 months. stated that pt has become increasingly paranoid for the past few days and told her "people are tracking me." Pt seen today and he is a very poor historian, appears to be paranoid and responding to internal stimuli, pacing thru out interview unwilling to sit down when offered. Pt states he's here b/c "I'm loosing my mind and I need to be put down." Pt unable to proceed with rest of interview reliably due to on going internal stimuli, paranoia, restlessness, and poor attention. Rest of history gather from chart review as pt is a very poor historian. CONSULTANTS INVOLVED: none TREATMENT AND PROGRESS ON THE UNIT : Pt was admitted to [facility], seen for psychiat haily assessment and restarted on invega increased to 6mg bid as he had been non- compliant on it outpatient. He tolerated the restart of oral invega with symptoms improvement and he was given invega sustenna 234mg loading dose im followed by invega sustenna maintenance dose 3 days later both of which he tolerated well and symptoms continued to improve. His oral invega was discontin ued. He was provided trazodone 50mg qhs prn insomnia. Pt found his medications beneficial and tolerated them well. He attended groups daily during his stay. His symptoms improved with treatment. On day of discharge he denied depression, anxiety, insomnia, SI/HI, hallucinations, delusions, paranoia. He was discharged home after family meeting with his with follow-up at [facility]. He felt safe for discharge. DISCHARGE ASSESSMENT: Pt seen and states he's doing good. Denies AH and paranoia. States he tolerated invega sustenna and feels it beneficial. Denies bizarre, mistrustful, and paranoid behavior. Does not appear to be responding to internal stimuli any longer. Socializing with peers on the unit and doing therapeutic activities on his own. No longer pacing halls and isolative to self. Appears no longer psychotic. Denies depression, anxiety, insomnia, SI/H, hallucination, delusions, and paranoia. Feels safe to be discharged home with his MENTAL STATUS EXAMINATION ON DISCHARGE: General Appearance: well groomed, appears stated age, own clothing Build: average Demeanor: cooperative Eye Contact: fair Activity: calm Behavior: cooperative, calm Speech: clear, spontaneous Mood: euthymic, flat Mood "good" Affect: euthymic, flat Thought Process: concrete, linear/logical Thought Content (Delusions): none reported Thought Content (Other): none reported Thought Content (Aggressive): none reported Perception (Hallucinations): none reported Perception (Other): none reported Cognition (Impairment of): none reported Cognition(Intelligence Est.): average Oriented: Awake, Alert, Oriented times three Insight: good Judgment: good Psychosis: none reported MEDICATIONS ON DISCHARGE: invega sustenna 234mg im qmonthly trazodone 50mg qhs prn insomnia PLAN/FOLLOWUP ARRANGEMENTS: D/c home with follow-up at [facility]. The amount of time spent in the coordination of care for this patient was approximately 30 minutes. Vital Signs/I&Os Vital Signs Date Time Temp Pulse Resp B/P (MAP) Pulse Ox O2 Delivery O2 Flow Rate FiO2 10/04/18 06:27 97.6 58 14 104/62 (76) 10/02/18 06:18 Room Air Medications Scheduled Loratadine (Loratadine) 10 Mg Tab, 10 MG PO DAILY, (Reported) Metoprolol Succinate (Metoprolol Succinate ER) 25 Mg Tab, 25 MG PO DAILY, (Reported) Paliperidone Palmitate (Invega Sustenna) 234 Mg/1.5 Ml Inj, 234 MG IM QMONTH for schizophrenia, #1 Scheduled PRN Albuterol Sulfate (Proair Hfa) 108 Mcg/Act Aer, 2 PUFF INH Q4H PRN for SHORTNESS OF BREATH, (Reported) Artificial Tears (Artificial Tears) 1.4 % Ilana, 1 DROP OU QID PRN for DRY EYES, (Reported) Trazodone HCl (Trazodone HCl) 50 Mg Tab, 50 MG PO QHS PRN for SLEEP, #10 Allergies Coded Allergies: No Known Drug Allergy (Verified Allergy, 06/22/13) POLLEN (Verified Allergy, 11/01/12) JENNY ULLOA DO Oct 04, 2018 8:54 am
[2018-10-04] MEDS ORDERED: INVE234I IM (08:56)
[2018-10-04] MEDS ORDERED: TRAZO50TA PO (08:56)
[2018-10-04] MEDS: LORazepam 2 MG TAB PO PRN (09:02)
[2018-10-04] MEDS: ALBUTEROL 90 MCG/ACT 8GM HFA INHALER INH PRN (11:25)
== END 2018-10-04 11:55 | disposition home or self-care (01) | DRG 750 ==
LOC: M ED 19:38 → M ED INP 21:36 → M PSY 22:36
PROVIDERS: ADMIT Psychiatry & Neurology Psychiatry; ATTEND Psychiatry & Neurology Psychiatry
DX: F20.0 Paranoid schizophrenia (principal); I10 Essential (primary) hypertension; Z79.899 Other long term (current) drug therapy; J45.909 Unspecified asthma, uncomplicated; J30.9 Allergic rhinitis, unspecified; F17.200 Nicotine dependence, unspecified, uncomplicated; D72.829 Elevated white blood cell count, unspecified

== ENCOUNTER 2018-12-27 18:57 | Inpatient (IN) | payer BC, MEDICAID, OTHER ==
[~2018-12-27] VITALS: Ht 177.8 cm; Wt 81.0 kg
[~2018-12-27 18:57] MED LIST changes: -/ACETCOD2T PO; +ACET1TAB15 PO; +ARTI99.0 OU; +INVE234I IM; +LORA10TA3 PO; +METO1TAB32 PO; +PROAAER10 INH; +TRAZO50TA PO
[2018-12-27 20:22] LABS: HEMATOCRIT 46.6 % (42.0-52.0); HEMOGLOBIN 16.1 g/dl (13.5-17.5); MEAN CORPUSCULAR HGB CONC 34.5 g/dl (32.0-36.5); MEAN CORPUSCULAR VOLUME 86.9 fl (80.0-96.0); PLATELET COUNT, AUTOMATED 239 10^3/uL (150-450); RED BLOOD COUNT 5.36 10^6/uL (4.30-6.10); WHITE BLOOD COUNT 7.4 10^3/uL (4.0-10.0)
[2018-12-27 20:47] LABS: AMPHETAMINES LEVEL URINE NEGATIVE (NEGATIVE); BARBITURATES URINE NEGATIVE (NEGATIVE); BENZODIAZEPINES URINE NEGATIVE (NEGATIVE); CANNABINOIDS URINE NEGATIVE (NEGATIVE); COCAINE METABOLITE URINE NEGATIVE (NEGATIVE); METHADONE URINE NEGATIVE (NEGATIVE); OPIATES URINE POSITIVE (NEGATIVE); PHENCYCLIDINE URINE NEGATIVE (NEGATIVE)
[2018-12-27 20:53] LABS: ACETAMINOPHEN LEVEL < 2.0 UG/ML (10.0-30.0); ALBUMIN 4.6 GM/DL (3.2-5.2); ALT/SGPT 80 U/L (12-78); BILIRUBIN,DIRECT 0.2 MG/DL (0.0-0.2); BILIRUBIN,TOTAL 0.7 MG/DL (0.2-1.0); BLOOD UREA NITROGEN 8 MG/DL (7-18); CARBON DIOXIDE LEVEL 25 MEQ/L (21-32); CHLORIDE LEVEL 104 MEQ/L (98-107); CREATININE FOR GFR 0.86 MG/DL (0.70-1.30); ETHYL ALCOHOL (ETHANOL) < 0.003 % (0.000-0.010); GLOMERULAR FILTRATION RATE > 60.0 (>60); GLUCOSE, FASTING 107 MG/DL (70-100); POTASSIUM SERUM 4.2 MEQ/L (3.5-5.1); SALICYLATE LEVEL < 1.7 MG/DL (5.0-30.0); SODIUM LEVEL 140 MEQ/L (136-145); THYROID STIMULATING HORMONE 0.889 uIU/ML (0.358-3.740); TOTAL PROTEIN 8.2 GM/DL (6.4-8.2)
[2018-12-27] MEDS ORDERED: ARTI99.0 OU (21:38)
[2018-12-27] MEDS ORDERED: METO1TAB32 PO (21:38)
[2018-12-27] MEDS ORDERED: LORA-674 PO (21:38)
[2018-12-27] MEDS ORDERED: PROAAER10 INH (21:38)
[2018-12-27] MEDS ORDERED: [UNRECOGNIZED DRUG - OTHER] PO (21:38)
[2018-12-27] MEDS ORDERED: MAALOX 30 ML SUSP *UDC PO PRN (22:15)
[2018-12-27] MEDS ORDERED: MOM 30ML SUSPENSION UDC PO PRN (22:15)
[2018-12-27] MEDS ORDERED: POLYVINYL ALCOHOL OPHTH SOLN 15 ML(LIQUITEARS) OU PRN (22:15)
[2018-12-27] MEDS ORDERED: ACETAMINOPHEN TAB 650MG DOSE (2X325MG) PO PRN (22:15)
[2018-12-27 23:38] VITALS: BP 131/84
[2018-12-28 06:57] VITALS: BP 94/56
[2018-12-28] MEDS: LORATADINE 10 MG TAB PO SCH (09:03)
[2018-12-28] MEDS: NICOTINE 21MG/24HR 1 EA TRANSDERMAL TD PRN (09:04)
[2018-12-28] MEDS: METOPROLOL SUCC *XL* 25MG TAB (TopROL *XL*) PO SCH (11:32)
--- NOTE | 2018-12-28 14:04 | MHHPEPDOC ---
General Date Of Admission: Dec 28, 2018 Legal Status: 9.39 Chief Complaint Disorganized thinking/psychosis History of Present Illness HISTORY OF THE PRESENT ILLNESS: Patient is a 28 -year-old , male, who has a history of paranoid schizophrenia and presents with suicidal ideations. Per [facility] mental health evaluation: "Pt presented to ED Depressed and +SI. Pt D/C from [facility] 09/2018. When Pt was asked how he has been since D/C , Pt replied, "A Little ruff". "I stopped the thoughts and lost my mind". "Met myself about 8 years ago". "Time for me to ". "My brain is going to do something and I am going to ". Pt reported, he is not med compliant, stopped 7 months ago. "Don't see any point in it, not really helping". Pt teary. Pt has not left the house since being D/C from [facility] in September. According to Pt, "don't leave the house because my thoughts are out loud". "When you think something and it goes to someone else, then you , because your head is empty". "I know it's the end for me". "You just know"." Reports last 234 mg invega sustenna IM injection was during last [facility] admission in September 2018, says last appointment at [facility] was prior to that admission, since did not follow up. Says he's living with his "wifie". States "my thoughts are all out" and appears to be responding to internal stimuli/having thought blocking. When asked questions he seems confused and paranoid/resistant/oppositional, but states that he is no longer suicidal or homicidal. He agrees to be restarted on paliperidone PO and eventually be restarted on the injection. He currently has poverty of speech and is disorganized. Denies any drug use, but urine toxicology positive for opiates. Psychiatric Review of Systems Depression (2 or more weeks): depressed mood, insomnia/hypersomnia, difficulty concentrating, psychomotor changes (psychomotor retardation), suicidal thoughts (On admission, would not elaborate and denies during interview.) Psychosis: auditory hallucination (hears voice), delusions, paranoia, disorganization Anxiety: denies Anxiety/ 6 months or more of: difficulty concentrating, irritability Past Psychiatric History Previous Psychiatric Diagnosis: Schizophrenia, paranoid type Previous Psychiatric Admissions: [facility] 5x, last admission September 2018 for psychosis, inpatient at [facility] 12/27/11-01/04/12 Suicide Attempts: None per chart review Psychiatric Follow-up: [facility], non-compliance reported since last [facility] discharge Psychiatric medications: None compliant invega since last [facility] discharge, approximately 4 months. Past Medical History Head Injury: No Seizures: No Hospitalizations: Yes Surgeries: No Family Medical/Psychiatric HX Medical Problems None endorsed Psychiatric Disorders: No Addiction: No Suicide Attemps/Completions: No Addiction History nicotine ("Vaping"), opioids (Positive on urine screen, denies use) Social History Childhood: Reports grew up in [place], [place]. Abuse/Trauma:Denies Current Living Situation: States lives with "wifie" Education: GED Employment: Unknown Social Support: "wifie" Legal: Denies Marital: endorses , 1 teenage son per records Mental Status Examination General Appearance: unkempt, hospital scubs/clothing Build: average Demeanor: mistrustful, withdrawn, guarded Eye Contact: poor Activity: agitated, slowed Behavior: uncooperative, resistant, agitated Speech: low in volume, non-spontaneous, impoverished Mood: irritable Affect: flat, disorganized Thought Process: concrete, blocked Thought Content (Delusions): paranoia, other (denies SI/HI) Thought Content (Other): preoccupied, guarded, phobic, internal-stimuli, appears paranoid, unable to elaborate Thought Content (Aggressive): none reported Perception (Hallucinations): auditory ("hears thoughts"), visual, other (Did not elaborate on visual, but was looking around the room during interview) Cognition (Impairment of): attention/concentration Cognition(Intelligence Est.): average Oriented: Awake, Alert Insight: poor Judgment: Poor Psychosis: Psychotic Perceptions Diagnoses 1. Schizophrenia, paranoid subtype per hx. 2. Tobacco use disorder (vaping) R/O opioid use disorder Assessment Patient is disorganized, paranoid, flat and had poverty of speech with thought blocking. During interview was able to answer questions, but took multiple attempts as he was distracted and looking around the room. Denies SI/HI despite having stated on admission yesterday evening he was suicidal. He agrees to start oral paliperidone since has helped him in the past, eventually may be able to receive 234 mg IM injection if he agrees, followed by maintenance and tolerates the oral dosage. Per last [facility] discharge note, medication helped with his psychotic symptoms and he did not have side effects or allergies. Will need more in dept interview when less disorganized/more coherent. Problem List Problems: (1) Psychosis Status: Chronic Response to Treatment: Uncompensated (2) Disorganized thought process Status: Chronic Response to Treatment: Uncompensated Initial Treatment Plan 1. Patient was admitted on a [9.39] status. 2. Complete history was obtained. 3. With patients permission, family will be contacted and database will be expanded. 4. Patients medication regimen will be reviewed and changed accordingly. 5. Patient will be provided with protected environment. 6. Patient will be treated with individual, group, and milieu therapies. 7. Patient will receive supportive psych-education. 8. Discharge planning will commence immediately. 9. Outpatient follow-up treatment will be strongly recommended. 10. The initial treatment plan will focus initially on: * Depression, psychosis * Risk for suicide. * Substance abuse. ESTIMATED LENGTH OF STAY: 5-10 DAYS. TIME SPENT COUNSELING AND COORDINATING INITIAL CARE: minutes. Vital Signs Vital Signs Date Time Temp Pulse Resp B/P (MAP) Pulse Ox O2 Delivery O2 Flow Rate FiO2 12/28/18 11:32 68 116/72 12/28/18 10:02 Room Air 12/28/18 06:57 97.0 16 12/27/18 23:38 98 Laboratory Data 24H Labs Laboratory Tests 2 12/27/18 20:01: Nucleated Red Blood Cells % (auto) 0.0, Anion Gap 11, Glomerular Filtration Rate > 60.0, Calcium Level 9.0, Aspartate Amino Transf (AST/SGOT) 23, Alanine Aminotransferase (ALT/SGPT) 80H, Alkaline Phosphatase 58, Total Bilirubin 0.7, Direct Bilirubin 0.2, Total Protein 8.2, Albumin 4.6, Albumin/Globulin Ratio 1.28, Thyroid Stimulating Hormone (TSH) 0.889, Salicylates Level < 1.7L, Urine Amphetamines Screen NEGATIVE, Urine Benzodiazepines Screen NEGATIVE, Urine Opiates Screen POSITIVEH, Urine Methadone Screen NEGATIVE, Acetaminophen Level < 2.0L, Urine Barbiturates Screen NEGATIVE, Urine Phencyclidine Screen NEGATIVE, Urine Cocaine Metabolite Screen NEGATIVE, Urine Cannabinoids Screen NEGATIVE, Ethyl Alcohol Level < 0.003 CBC/BMP Laboratory Tests 12/27/18 20:01 Red Blood Count 5.36, Mean Corpuscular Volume 86.9, Mean Corpuscular Hemoglobin 30.0, Mean Corpuscular Hemoglobin Concent 34.5, Red Cell Distribution Width 12.6 Medications Scheduled Loratadine (Loratadine) 10 Mg Tablet, 10 MG PO DAILY, (Reported) Metoprolol Succinate (Metoprolol Succinate) 25 Mg Tab.er.24h, 25 MG PO DAILY, (Reported) Multivit-Minerals/Folic Acid (Adult Multivitamin Gummies) 200 Mcg Tab.chew, 1 CHW PO DAILY, (Reported) Scheduled PRN Albuterol Sulfate (Proair Hfa) 8.5 Gm Hfa.aer.ad, 2 PUFF INH Q4H PRN for SHORTNESS OF BREATH, (Reported) Polyvinyl Alcohol (Artificial Tears) 15 Ml Drops, 1 DROP OU QID PRN for DRY EYES, (Reported) Allergies Coded Allergies: POLLEN (Verified Allergy, Unknown, 12/27/18) MERVIN TRAVIS PGY-1 Dec 28, 2018 13:32
--- NOTE | 2018-12-28 15:55 | HPEPDOC ---
[facility] Medical History & Physical Date of Admission Dec 28, 2018 History and Physical CHIEF COMPLAINT: Suicidal ideation HISTORY OF PRESENT ILLNESS: Patient is a 28-year-old male with past medical history of schizophrenia, asthma, hypertension presented to the dental health unit with reported suicidal ideations. All history obtained from previous medical records. During interview, patient denies having any medical or psychological issues. He stated that he does not know why he is in the hospital and he is ready to go home. He currently denies any complaints including chest pain, shortness of breath, any pain or discomfort or any other complaints. He also denies any suicidal ideation and states that he feels well. He denies any drug use but U tox is positive for opiates. PAST MEDICAL HISTORY: 1. Hernia. 2. Asthma. 3. Attention. PAST SURGICAL HISTORY: None reported SOCIAL HISTORY: Denies any tobacco, alcohol or drug use. Although previous documentation reported marijuana use and Utox on this admission + for opiates. FAMILY HISTORY: None reported. ALLERGIES: Please see below. REVIEW OF SYSTEMS: 10 point review of system negative except as stated in HPI HOME MEDICATIONS: Please see below. PHYSICAL EXAMINATION: General: No acute distress, Alert Eyes: Normal sclera, EOMI, SAMANTHA HENT: Atraumatic, neck supple, moist mucous membranes Cardiovascular: Normal rate, normal rhythm. No murmurs appreciated. Pulmonary: Clear to auscultation b/l, no wheezing GI: Soft, nontender, nondistended Skin: Warm and dry Neuro: CN grossly intact. No focal deficits. Strengths equal b/l. Psych: oriented x 3 LABORATORY DATA: See below. MICROBIOLOGY: Please see below. ASSESSMENT AND PLAN: 1. Suicidal ideation - Currently denies any thoughts at this time. - Will need continue evaluation and treatment by Psych. 2. Schizophrenia - c/w Antipsychotics per Psych. - Therapy and monitoring. - Reported no hallucinations this AM. 3. Hx Asthma? Duonebs PRN 4. HTN - BP controlled on metoprolol. - Continue and monitor BP. Vital Signs Vital Signs Date Time Temp Pulse Resp B/P (MAP) Pulse Ox O2 Delivery O2 Flow Rate FiO2 12/28/18 11:32 68 116/72 12/28/18 10:02 Room Air 12/28/18 06:57 97.0 16 12/27/18 23:38 98 Laboratory Data Labs 24H Laboratory Tests 2 12/27/18 20:01: Nucleated Red Blood Cells % (auto) 0.0, Anion Gap 11, Glomerular Filtration Rate > 60.0, Calcium Level 9.0, Aspartate Amino Transf (AST/SGOT) 23, Alanine Aminotransferase (ALT/SGPT) 80H, Alkaline Phosphatase 58, Total Bilirubin 0.7, Direct Bilirubin 0.2, Total Protein 8.2, Albumin 4.6, Albumin/Globulin Ratio 1.28, Thyroid Stimulating Hormone (TSH) 0.889, Salicylates Level < 1.7L, Urine Amphetamines Screen NEGATIVE, Urine Benzodiazepines Screen NEGATIVE, Urine O piates Screen POSITIVEH, Urine Methadone Screen NEGATIVE, Acetaminophen Level < 2.0L, Urine Barbiturates Screen NEGATIVE, Urine Phencyclidine Screen NEGATIVE, Urine Cocaine Metabolite Screen NEGATIVE, Urine Cannabinoids Screen NEGATIVE, Ethyl Alcohol Level < 0.003 CBC/BMP Laboratory Tests 12/27/18 20:01 Red Blood Count 5.36, Mean Corpuscular Volume 86.9, Mean Corpuscular Hemoglobin 30.0, Mean Corpuscular Hemoglobin Concent 34.5, Red Cell Distribution Width 12.6 Home Medications Scheduled Loratadine (Loratadine) 10 Mg Tablet, 10 MG PO DAILY Metoprolol Succinate (Metoprolol Succinate) 25 Mg Tab.er.24h, 25 MG PO DAILY Multivit-Minerals/Folic Acid (Adult Multivitamin Gummies) 200 Mcg Tab.chew, 1 CHW PO DAILY Scheduled PRN Albuterol Sulfate (Proair Hfa) 8.5 Gm Hfa.aer.ad, 2 PUFF INH Q4H PRN for SHORTNESS OF BREATH Polyvinyl Alcohol (Artificial Tears) 15 Ml Drops, 1 DROP OU QID PRN for DRY EYES Allergies Coded Allergies: POLLEN (Verified Allergy, Unknown, 12/27/18) ROSA ADAIR MD Dec 28, 2018 15:55
[2018-12-28] MEDS: PALIPERIDONE 6 MG ER TAB (INVEGA) PO SCH (16:59)
[2018-12-28 18:00] VITALS: BP 144/68
[2018-12-28] MEDS: ALBUTEROL 90 MCG/ACT 8GM HFA INHALER INH PRN (19:30)
[2018-12-29] MEDS ORDERED: traZODone 50 MG TAB PO PRN (00:45)
[2018-12-29 06:40] VITALS: BP 118/69
[2018-12-29] MEDS: METOPROLOL SUCC *XL* 25MG TAB (TopROL *XL*) PO SCH (09:25)
[2018-12-29] MEDS: LORATADINE 10 MG TAB PO SCH (09:25)
[2018-12-29] MEDS: PALIPERIDONE 6 MG ER TAB (INVEGA) PO SCH (09:25)
--- NOTE | 2018-12-29 13:34 | MHIPNPDOC ---
[facility] Progress Note Progress Note DATE OF SERVICE: 12/29/18 HISTORY: See HPI. Interval History: Patient states "he know's it is the end". Still has poverty of speech and thought blocking. Denies SI/HI and says he wants to home. Tried to ask him why he thinks he cannot be helped. States that my brain is all screwed up and if you look at imaging it is all red. MRI 12/14/12 showed "no intracranial lesion". Despite this he endorses hopelessness with his situation and remains isolative to his room starring at the wall, internally pre-occupied. Denies HI. Does not answer questions related to depression or anxiety and denies psychotic symptoms. States when he sees people he has a "woosh" come upon him, but does not elaborate. VITAL SIGNS: See below. NEW TEST RESULTS: See below, ALT was 80 on admission, re-ordered CMP for tomorrow AM. Also Hba1c and lipid panel for tomorrow AM. CURRENT MEDICATIONS: See below. MENTAL STATUS EXAMINATION: Patient is a 28-year old male, who is in no acute distress, alert and awake, poorly-cooperative to interview with poor eye-contact. Speech: Is minimal, disorganized. Language skills are poor. Thought processes including: disorganized. Thought content: delusional, hopeless, confused, denies SI/HI/AVH (but appears internally pre-occupied). Abstract reasoning, and computation: poor Description of associations: poor Description of abnormal or psychotic thoughts: delusions of "the end" Judgment: poor. Insight: poor. Orientation: awake, alert. Recent and remote memory: unable to assess. Attention span and concentration: poor. Language: maltese. Fund of knowledge: unable to assess, likely poor. Mood: "I don't know". Affect: disorganized, anhedonic, flat, does not smile, inappropriate DIAGNOSES: 1. Schizophrenia, paranoid subtype per hx R/O opioid use disorder ASSESSMENT: Patient continues to be disorganized and internally pre-occupied with negative delusions. He denies side effects from medications and remains isolative in his room. Nursing staff informed of safety risk when entering room since he is disorganized and possibly paranoid/delusional. Plan for paliperidone 234 mg Im injection. MANAGEMENT PLAN: see above TIME SPENT: 25 minutes. Vital Signs Vital Signs Date Time Temp Pulse Resp B/P (MAP) Pulse Ox O2 Delivery O2 Flow Rate FiO2 12/29/18 09:25 57 118/69 12/29/18 08:57 Room Air 12/29/18 06:40 98.4 14 12/27/18 23:38 98 Current Medications Current Medications Acetaminophen (Tylenol Tab) 650 mg Q6HP PRN PO HEADACHE or DISCOMFORT; Start 12/27/18 at 22:15 Al Hydrox/Mg Hydrox/Simethicone (Mylanta) 30 ml Q4HP PRN PO HEARTBURN/INDIGESTION; Start 12/27/18 at 22:15 Albuterol Sulfate (Proventil, Ventolin Hfa) 2 puff Q4H PRN INH SHORTNESS OF BREATH Last administered on 12/28/18 19:30; Start 12/27/18 at 22:15 Artificial Tears (Akwa Tears) 1 drop QID PRN OU DRY EYES; Start 12/27/18 at 22:15 Home Med (Med Rec Complete!) ASDIRECTED XX ; Start 12/27/18 at 21:45; Stop 12/27/18 at 21:45; Status DC Loratadine (Claritin) 10 mg DAILY PO Last administered on 12/29/18at 09:25; Start 12/28/18 at 09:00 Magnesium Hydroxide (Milk Of Magnesia) 30 ml DAILYPRN PRN PO CONSTIPATION; Start 12/27/18 at 22:15 Metoprolol Succinate (TopROL XL) 25 mg DAILY PO Last administered on 12/29/18at 09:25; Start 12/28/18 at 09:00 Nicotine (Nicoderm Cq 21mg) 1 patch DAILY PRN TD Craving Last administered on 12/28/18at 09:04; Start 12/27/18 at 22:15 Olanzapine (ZyPREXA ZYDIS) 10 mg Q4HP PRN PO ANXIETY/AGITATION; Start 12/27/18 at 22:15 Paliperidone (Invega) 6 mg DAILY PO Last administered on 12/29/18at 09:25; Start 12/28/18 at 09:00 Trazodone HCl (Desyrel) 50 mg QHSP PRN PO INSOMNIA; Start 12/29/18 at 00:45 Allergies Coded Allergies: POLLEN (Verified Allergy, Unknown, 12/27/18) MERVIN TRAVIS PGY-1 Dec 29, 2018 12:41
[2018-12-29] MEDS: NICOTINE 21MG/24HR 1 EA TRANSDERMAL TD PRN (13:59)
--- NOTE | 2018-12-29 17:05 | ECGEPIP ---
Stationary ECG Study 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 Electronically Signed On 12-29-2018 17:04:52 EDT by Ector Holley
[2018-12-29] MEDS: ALBUTEROL 90 MCG/ACT 8GM HFA INHALER INH PRN (17:56)
[2018-12-29 18:25] VITALS: BP 139/65
[2018-12-30 06:51] VITALS: BP 107/58
[2018-12-30 08:11] LABS: ALBUMIN 4.3 GM/DL (3.2-5.2); ALT/SGPT 69 U/L (12-78); BILIRUBIN,TOTAL 0.8 MG/DL (0.2-1.0); BLOOD UREA NITROGEN 11 MG/DL (7-18); CALCIUM LEVEL 9.4 MG/DL (8.5-10.1); CARBON DIOXIDE LEVEL 30 MEQ/L (21-32); CHLORIDE LEVEL 103 MEQ/L (98-107); CHOLESTEROL LEVEL 145 MG/DL (<200); CHOLESTEROL RISK RATIO 3.815 (<5); CREATININE FOR GFR 0.96 MG/DL (0.70-1.30); GLOMERULAR FILTRATION RATE > 60.0 (>60); GLUCOSE, FASTING 85 MG/DL (70-100); HDL CHOLESTEROL 38 MG/DL (>40); LDL CHOLESTEROL 90 MG/DL (<100); NON-HDL-C 107 MG/DL; POTASSIUM SERUM 4.3 MEQ/L (3.5-5.1); SODIUM LEVEL 140 MEQ/L (136-145); TOTAL PROTEIN 7.4 GM/DL (6.4-8.2); TRIGLYCERIDES LEVEL 83 MG/DL (<150)
[2018-12-30 08:12] LABS: HEMOGLOBIN A1c 4.9 %
[2018-12-30] MEDS: NICOTINE 21MG/24HR 1 EA TRANSDERMAL TD PRN (08:13)
[2018-12-30] MEDS: PALIPERIDONE 6 MG ER TAB (INVEGA) PO SCH (08:13)
[2018-12-30] MEDS: METOPROLOL SUCC *XL* 25MG TAB (TopROL *XL*) PO SCH (08:15)
[2018-12-30] MEDS: LORATADINE 10 MG TAB PO SCH (08:16)
--- NOTE | 2018-12-30 08:44 | MHIPNPDOC ---
[facility] Progress Note Progress Note DATE OF SERVICE: 12/30/18 HISTORY: See HPI. Interval History: Patient states he's here "b/c I just wanted to get out of the house". Still has poverty of speech and thought blocking. Denies SI/HI. Unable to abstract thought. Superficial, vague answers to questions. Asked how he's doing here and states "I've just been hanging out with everyone." Continues to come across hopeless with his situation and although more present in the milieu. Appears internally pre-occupied. Denies HI. Does not answer questions related to depression or anxiety and denies psychotic symptoms. VITAL SIGNS: See below. NEW TEST RESULTS: See below, ALT was 80 on admission, re-ordered CMP wnl. Hba1c and lipid panel wnl CURRENT MEDICATIONS: See below. MENTAL STATUS EXAMINATION: Patient is a 28-year old male, who is in no acute distress, alert and awake, poorly-cooperative to interview with poor eye-contact. Speech: Is minimal, disorganized. Language skills are poor. Thought processes including: disorganized. Thought content: delusional, hopeless, confused, denies SI/HI/AVH (appears internally pre-occupied). Abstract reasoning, and computation: poor Description of associations: poor Description of abnormal or psychotic thoughts: delusions of "the end" Judgment: poor. Insight: poor. Orientation: awake, alert. Recent and remote memory: unable to assess. Attention span and concentration: poor. Language: rwandan. Fund of knowledge: unable to assess, likely poor. Mood: "hanging out". Affect: disorganized, anhedonic, flat, does not smile, inappropriate DIAGNOSES: Schizophrenia, paranoid subtype per hx R/O opioid use disorder ASSESSMENT: Patient continues to be disorganized and internally pre-occupied with negative delusions. He denies side effects from medications and remains isolative in his room. Nursing staff informed of safety risk when entering room since he is disorganized and possibly paranoid/delusional. Plan for paliperidone 234 mg Im injection. MANAGEMENT PLAN: see above TIME SPENT: 25 minutes. Vital Signs Vital Signs Date Time Temp Pulse Resp B/P (MAP) Pulse Ox O2 Delivery O2 Flow Rate FiO2 12/30/18 08:15 88 154/67 12/30/18 06:51 97.6 12 12/29/18 08:57 Room Air 12/27/18 23:38 98 Laboratory Data 24H Labs Laboratory Tests 2 12/30/18 07:16: Anion Gap 7L, Glomerular Filtration Rate > 60.0, Estimated Mean Plasma Glucose 94, Hemoglobin A1c 4.9, Blood Urea Nitrogen 11, Creatinine 0.96, Sodium Level 140, Potassium Level 4.3, Chloride Level 103, Carbon Dioxide Level 30, Calcium Level 9.4, Aspartate Amino Transf (AST/SGOT) 24, Alanine Aminotransferase (ALT/SGPT) 69, Alkaline Phosphatase 64, Total Bilirubin 0.8, Triglycerides Level 83, LDL Cholesterol 90, Total Protein 7.4, Albumin 4.3, Albumin/Globulin Ratio 1.39, Total Cholesterol 145, Non-HDL Cholesterol (LDL + VLDL) 107, Total HDL Ch olesterol 38L, Cholesterol/HDL Ratio 3.815 CBC/BMP Laboratory Tests 12/30/18 07:16 Calcium Level 9.4, Aspartate Amino Transf (AST/SGOT) 24, Alanine Aminotransferase (ALT/SGPT) 69, Alkaline Phosphatase 64, Total Bilirubin 0.8, Triglycerides Level 83, LDL Cholesterol 90, Total Protein 7.4, Albumin 4.3 Current Medications Current Medications Acetaminophen (Tylenol Tab) 650 mg Q6HP PRN PO HEADACHE or DISCOMFORT; Start 12/27/18 at 22:15 Al Hydrox/Mg Hydrox/Simethicone (Mylanta) 30 ml Q4HP PRN PO HEARTBURN/INDIGESTION; Start 12/27/18 at 22:15 Albuterol Sulfate (Proventil, Ventolin Hfa) 2 puff Q4H PRN INH SHORTNESS OF BREATH Last administered on 12/29/18at 17:56; Start 12/27/18 at 22:15 Artificial Tears (Akwa Tears) 1 drop QID PRN OU DRY EYES; Start 12/27/18 at 22:15 Home Med (Med Rec Complete!) ASDIRECTED XX ; Start 12/27/18 at 21:45; Stop 12/27/18 at 21:45; Status DC Loratadine (Claritin) 10 mg DAILY PO Last administered on 12/30/18at 08:16; Start 12/28/18 at 09:00 Magnesium Hydroxide (Milk Of Magnesia) 30 ml DAILYPRN PRN PO CONSTIPATION; Start 12/27/18 at 22:15 Metoprolol Succinate (TopROL XL) 25 mg DAILY PO Last administered on 12/30/18at 08:15; Start 12/28/18 at 09:00 Nicotine (Nicoderm Cq 21mg) 1 patch DAILY PRN TD Craving Last administered on 12/30/18at 08:13; Start 12/27/18 at 22:15 Olanzapine (ZyPREXA ZYDIS) 10 mg Q4HP PRN PO ANXIETY/AGITATION; Start 12/27/18 at 22:15 Paliperidone (Invega) 6 mg DAILY PO Last administered on 12/30/18at 08:13; Start 12/28/18 at 09:00 Trazodone HCl (Desyrel) 50 mg QHSP PRN PO INSOMNIA; Start 12/29/18 at 00:45 Allergies Coded Allergies: POLLEN (Verified Allergy, Unknown, 12/27/18) JENNY ULLOA DO Dec 30, 2018 8:44 am
[2018-12-30 18:00] VITALS: BP 119/62
[2018-12-31 06:40] VITALS: BP 111/58
[2018-12-31] MEDS: NICOTINE 21MG/24HR 1 EA TRANSDERMAL TD PRN (09:07)
[2018-12-31] MEDS: LORATADINE 10 MG TAB PO SCH (09:07)
[2018-12-31] MEDS: METOPROLOL SUCC *XL* 25MG TAB (TopROL *XL*) PO SCH (09:07)
[2018-12-31] MEDS: PALIPERIDONE 6 MG ER TAB (INVEGA) PO SCH (09:07)
--- NOTE | 2018-12-31 10:14 | MHIPNPDOC ---
[facility] Progress Note Progress Note DATE OF SERVICE: 12/31/18 HISTORY: See HPI. Interval History: Patient states he's doing better as able to think more clearly. Able to answer some questions more specifically. Affect appears less flat. States he slept well last night. Improving poverty of speech and thought blocking. Denies SI/HI. Unable to abstract thought. Still answers at times in superficial, vague answers to questions. Less hopeless with his situation and is more present in the milieu. Appears less internally pre-occupied. Denies SI/HI. States he's tolerating his medication, feels it's beneficial, and denies side effects. VITAL SIGNS: See below. NEW TEST RESULTS: See below, ALT was 80 on admission, re-ordered CMP wnl. Hba1c and lipid panel wnl CURRENT MEDICATIONS: See below. MENTAL STATUS EXAMINATION: Patient is a 28-year old male, who is in no acute distress, alert and awake, poorly-cooperative to interview with poor eye-contact. Speech: Is less minimal and disorganized. Language skills are poor. Thought processes including: disorganized. Thought content: delusional, hopeless, confused, denies SI/HI/AVH (appears internally pre-occupied). Abstract reasoning, and computation: poor Description of associations: poor Description of abnormal or psychotic thoughts: delusions of "the end" Judgment: poor. Insight: poor. Orientation: awake, alert. Recent and remote memory: unable to assess. Attention span and concentration: poor. Language: kiswahili. Fund of knowledge: unable to assess, likely poor. Mood: "alright". Affect: less disorganized, anhedonic, flat, inappropriate DIAGNOSES: Schizophrenia, paranoid subtype per hx R/O opioid use disorder ASSESSMENT: Patient is less disorganized and internally pre-occupied with neg ative delusions. He denies side effects from medications and less isolative in his room. Nursing staff informed of safety risk when entering room since he is disorganized and possibly paranoid/delusional. Plan for paliperidone 234 mg Im injection. MANAGEMENT PLAN: see above TIME SPENT: 25 minutes. Vital Signs Vital Signs Date Time Temp Pulse Resp B/P (MAP) Pulse Ox O2 Delivery O2 Flow Rate FiO2 12/31/18 09:07 62 111/58 12/31/18 06:40 97.4 12 12/29/18 08:57 Room Air 12/27/18 23:38 98 Current Medications Current Medications Acetaminophen (Tylenol Tab) 650 mg Q6HP PRN PO HEADACHE or DISCOMFORT; Start 12/27/18 at 22:15 Al Hydrox/Mg Hydrox/Simethicone (Mylanta) 30 ml Q4HP PRN PO HEARTBURN/INDIGESTION; Start 12/27/18 at 22:15 Albuterol Sulfate (Proventil, Ventolin Hfa) 2 puff Q4H PRN INH SHORTNESS OF BREATH Last administered on 12/29/18at 17:56; Start 12/27/18 at 22:15 Artificial Tears (Akwa Tears) 1 drop QID PRN OU DRY EYES; Start 12/27/18 at 22:15 Home Med (Med Rec Complete!) ASDIRECTED XX ; Start 12/27/18 at 21:45; Stop 12/27/18 at 21:45; Status DC Loratadine (Claritin) 10 mg DAILY PO Last administered on 12/31/18at 09:07; Start 12/28/18 at 09:00 Magnesium Hydroxide (Milk Of Magnesia) 30 ml DAILYPRN PRN PO CONSTIPATION; Start 12/27/18 at 22:15 Metoprolol Succinate (TopROL XL) 25 mg DAILY PO Last administered on 12/31/18at 09:07; Start 12/28/18 at 09:00 Nicotine (Nicoderm Cq 21mg) 1 patch DAILY PRN TD Craving Last administered on 12/31/18at 09:07; Start 12/27/18 at 22:15 Olanzapine (ZyPREXA ZYDIS) 10 mg Q4HP PRN PO ANXIETY/AGITATION; Start 12/27/18 at 22:15 Paliperidone (Invega) 6 mg DAILY PO Last administered on 12/31/18at 09:07; Start 12/28/18 at 09:00 Trazodone HCl (Desyrel) 50 mg QHSP PRN PO INSOMNIA; Start 12/29/18 at 00:45 Allergies Coded Allergies: POLLEN (Verified Allergy, Unknown, 12/27/18) JENNY ULLOA DO Dec 31, 2018 10:14
[2018-12-31] MEDS: OLANZapine ORAL DISINTEGRATING TAB 5MG PO PRN (16:38)
[2018-12-31] MEDS: ALBUTEROL 90 MCG/ACT 8GM HFA INHALER INH PRN (16:49)
[2018-12-31 18:07] VITALS: BP 127/79
[2019-01-01 07:03] VITALS: BP 99/50
[2019-01-01] MEDS: LORATADINE 10 MG TAB PO SCH (08:22)
[2019-01-01] MEDS: PALIPERIDONE 6 MG ER TAB (INVEGA) PO SCH (08:23)
[2019-01-01] MEDS: OLANZapine ORAL DISINTEGRATING TAB 5MG PO PRN (08:23)
[2019-01-01 08:24] VITALS: BP 120/70
[2019-01-01] MEDS: METOPROLOL SUCC *XL* 25MG TAB (TopROL *XL*) PO SCH (08:24)
[2019-01-01] MEDS: NICOTINE 21MG/24HR 1 EA TRANSDERMAL TD PRN (08:41)
[2019-01-01] MEDS ORDERED: BENZTROPINE 1 MG TAB PO SCH ×2 (09:00→11:45)
[2019-01-01] MEDS ORDERED: PALIPERIDONE PALMITATE 234 MG/1.5 ML INJ (INVEGA SUSTENNA)(J2426) IM ONE (12:00)
[2019-01-01] MEDS ORDERED: PALI1TAB3 PO (12:17)
[2019-01-01] MEDS ORDERED: BENZ-52 PO (12:17)
[2019-01-01] MEDS ORDERED: NICO21PAT TD (12:17)
--- NOTE | 2019-01-03 20:56 | MHDSPDOC ---
[facility] Discharge Summary Discharge Summary DATE OF ADMISSION: Dec 27, 2018 at 22:12 DATE OF DISCHARGE: Jan 01, 2019 DISCHARGE DIAGNOSES: 1. Schizophrenia, paranoid subtype per hx R/O opioid use disorder 2. Tobacco use disorder REASON FOR ADMISSION: Per H and P CONSULTANTS INVOLVED: medicine for initial workup. TREATMENT AND PROGRESS ON THE UNIT : Admitted on a 9.39 involuntary status, isolative and disorganized on admission. CBC was unremarkable, CMP showed eleva stephanie ALT of 80, repeat CMP showed trended down ALT in 60's. TSH within normal range. EKG was "normal for age" with QTc of 395 ms. Lipid panel was showed low HDL of 38 mg/dl, should be assessed outpatient for starting omega 3 fatty acids. Hba1c was normal range at 4.9 %. Stated his MRI "showed red", evaluating past MRI, showed no abnormalities and this was explained to patient. He was initially isolative to his room starring at the wall and responding to internal stimuli, disorganized with delusions "of the end" and hopeless regarding his treatment. He denied suicidal or homicidal ideations during his stay. His urine toxicology showed opioids, but he denies any opioid use, this should be re-evaluated by outpatient provider as may be a co-reaction on testing. He denied other substance use apart from tobacco, was counselled regarding use. He was started on paliperidone 6 mg PO daily and started to attend groups became more conservative, less flat, less disorganized and was seen in social milieu. He was started on cogentin 1 mg Po BID a he was looking shaky after starting medication. He had as needed trazodone 50 mg QHS for sleep, and as needed zyprexa for agitation/anxiety which he took during stay once prior to receiving paliperidone IM injection 234 mg on 01/01/19. He denied side effects or allergies from medications. He was also on metoprolol 25 mg Po daily for HTN. He was counselled regarding tobacco use. He was no longer psychotic prior to discharge and agreeable to returning home. HOSPITAL COURSE: see above. DISCHARGE ASSESSMENT: On discharge denies suicidal or homicidal ideations, no longer hopeless, mood improved, denies hallucinations, paranoia or delusions, denies franklin. Denies common or rare side effects of medications. [place] [place] He should be continued on paliperidone 6 mg Po daily until he receives a 156 mg Im paliperidone injection within a week of last 234 mg Im injection on 01/01/19. He can then be continued on monthly 234 mg Im paliperidone injections. Should be monitored for hyperlipidemia Q6 months and Qtc prolongation. MENTAL STATUS EXAMINATION ON DISCHARGE: Patient is a 28-year old male, who is in no acute distress, alert and awake, poorly-cooperative to interview with improved eye-contact. Speech: decreased rate, volume, amount, now spontaneous Language skills are poor. Thought processes including: less disorganized Thought content: delusional, hopeless, confused, denies SI/HI/AVH (but appears internally pre-occupied). Abstract reasoning, and computation: improved Description of associations: improved Description of abnormal or psychotic thoughts: no longer delusions Judgment: fair Insight: poor. Orientation: awake, alert. Recent and remote memory: unable to assess. Attention span and concentration: poor. Language: cymro. Fund of knowledge: unable to assess, likely poor. Mood: "okay". Affect: euthymic, blunted, does not smile, appropriate DIAGNOSES: 1. Schizophrenia, paranoid subtype per hx R/O opioid use disorder MEDICATIONS ON DISCHARGE: Scheduled Benztropine Mesylate (Benztropine Mesylate) 1 Mg Tablet, 1 MG PO BID for for agitation/EPS Loratadine (Loratadine) 10 Mg Tablet, 10 MG PO DAILY Metoprolol Succinate (Metoprolol Succinate) 25 Mg Tab.er.24h, 25 MG PO DAILY Multivit-Minerals/Folic Acid (Adult Multivitamin Gummies) 200 Mcg Tab.chew, 1 CHW PO DAILY Paliperidone (Paliperidone ER) 6 Mg Tab.er.24, 6 MG PO DAILY for schizophrenia Scheduled PRN Albuterol Sulfate (Proair Hfa) 8.5 Gm Hfa.aer.ad, 2 PUFF INH Q4H PRN for SHORTNESS OF BREATH Nicotine (Nicotine Patch) 1 Each Patch.td24, 1 PATCH TD DAILY PRN for Craving Polyvinyl Alcohol (Artificial Tears) 15 Ml Drops, 1 DROP OU QID PRN for DRY EYES PLAN/FOLLOWUP ARRANGEMENTS: ollow Up Care Education Label * Medical * Medical Follow Up [facility] * Established With This Provider Yes * Additional information UNABLE TO SCHEDULE UNTIL 01/02/19. OFFICE WAS CLOSED ON 01/01/19. Follow Up Care Education Label * Mental Health Appt 1 * [facility] * Established With This Provider Yes The amount of time spent in the coordination of care for this patient was approximately 20 minutes. Vital Signs/I&Os Vital Signs Date Time Temp Pulse Resp B/P (MAP) Pulse Ox O2 Delivery O2 Flow Rate FiO2 01/01/19 08:24 98 120/70 01/01/19 07:03 97.9 14 12/29/18 08:57 Room Air 12/27/18 23:38 98 Medications Scheduled Benztropine Mesylate (Benztropine Mesylate) 1 Mg Tablet, 1 MG PO BID for for a gitation/EPS for 7 Days, #14 Loratadine (Loratadine) 10 Mg Tablet, 10 MG PO DAILY, (Reported) Metoprolol Succinate (Metoprolol Succinate) 25 Mg Tab.er.24h, 25 MG PO DAILY, (Reported) Multivit-Minerals/Folic Acid (Adult Multivitamin Gummies) 200 Mcg Tab.chew, 1 CHW PO DAILY, (Reported) Paliperidone (Paliperidone ER) 6 Mg Tab.er.24, 6 MG PO DAILY for schizophrenia for 7 Days, #7 Scheduled PRN Albuterol Sulfate (Proair Hfa) 8.5 Gm Hfa.aer.ad, 2 PUFF INH Q4H PRN for SHORTNESS OF BREATH, (Reported) Nicotine (Nicotine Patch) 1 Each Patch.td24, 1 PATCH TD DAILY PRN for Craving for 7 Days, #7 Polyvinyl Alcohol (Artificial Tears) 15 Ml Drops, 1 DROP OU QID PRN for DRY EYES, (Reported) Allergies Coded Allergies: POLLEN (Verified Allergy, Unknown, 12/27/18) MERVIN TRAVIS PGY-1 Jan 01, 2019 11:33
== END 2019-01-01 16:30 | disposition home or self-care (01) | DRG 750 ==
LOC: M ED 18:57 → M ED INP 22:12 → M PSY 23:25
PROVIDERS: ADMIT Psychiatry & Neurology Psychiatry; ATTEND Psychiatry & Neurology Psychiatry
DX: F20.0 Paranoid schizophrenia (principal); F17.290 Nicotine dependence, other tobacco product, uncomplicated; F11.10 Opioid abuse, uncomplicated; J45.909 Unspecified asthma, uncomplicated; Z79.899 Other long term (current) drug therapy